=== PATIENT | male | born 1965 | race Caucasian/White ===

== ENCOUNTER 2025-03-19 16:43 | Emergency (ER) | payer BC, SELFPAY ==
--- NOTE | 2025-03-19 16:46 | ED.SKABFB ---
HPI - Skin/Abscess/Foreign Bdy General Chief complaint: Skin/Abscess/Foreign Body Stated complaint: Skin Problem/Tick Bite Time Seen by Provider: 03/19/25 16:55 Source: patient and RN notes reviewed Mode of arrival: ambulatory Limitations: no limitations History of Present Illness HPI narrative: 59-year-old male presents concern for rash on his back. Reports 2 weeks ago he had several tick bites, he removed the takes. Reports a week ago he noticed a rash. Reports that is itchy. He denies any pain. He denies flu-like symptoms or joint pain. MD complaint: insect bite/sting Related Data Allergies Allergy/AdvReac Type Severity Reaction Status Date / Time No Known Allergies Allergy Unverified 03/19/25 16:58 Review of Systems Review of Systems: CONSTITUTIONAL: Denies malaise, chills, sweats, or fever. EYES: Denies redness, or discharge. ENT: Denies rhinorrhea, congestion, swollen lips, swollen tongue CARDIOVASCULAR: Denies chest pain, palpitations, or edema. RESPIRATORY: Denies cough or dyspnea. GASTROINTESTINAL: Denies abdominal pain, nausea, vomiting SKIN: Reports rash on his back MUSCULOSKELETAL: Denies joint pain or myalgia. NEUROLOGIC: Denies headache. All systems reviewed & are unremarkable except as noted in HPI and below PMFSH Social History Social History Alcohol intake: current Comments At time of signature, agree with nursing past medical, surgical, social and family history. There is no relevant family history pertinent to the presenting complaint Exam Narrative: GENERAL: Well-appearing, well-nourished, and in no acute distress. HEAD: Normocephalic, atraumatic. EYES: PERRLA, conjunctivae clear, and EOMI. ENT: Mucous membranes moist. Oropharynx without edema, erythema or lesions. NECK: Supple. No lymphadenopathy CHEST: Clear to auscultation. No respiratory distress. HEART: Regular rate and rhythm. SKIN: Warm, dry. Irregular somewhat circular rash noted to the mid back approximately 20 cm in diameter NEURO: Alert and oriented x3. PSYCH: Normal mood and affect Course Course Emergency Course: Patient is aware of diagnosis, understands and agrees to treatment plan. Anticipatory guidance given. Patient agrees to follow-up as directed and is aware of reasons to seek care at the emergency department. Portions of this record may have been created with voice recognition software Level of Care: Express Care Visit Vital Signs Vital signs: Reviewed. MDM - Skin/Abscess/Foreign Bdy MDM Narrative Medical decision making narrative: Does not appear at this time to be erythema multiforme, bullous, SJS, TEN; no evidence at this time to suggest RMSF, endocarditis or Lyme disease; patient looks well, nontoxic and is tolerating oral intake; no neurologic signs or symptoms; no headache, photophobia or neck pain; afebrile; appropriate for initial outpatient treatment; discussed the importance of follow-up, patient agrees; question, viral exanthema, contact dermatitis, allergic dermatitis, eczema, urticaria, erythema migrans. No soft palate or uvula edema, no tongue, lip edema or other mucosal involvement, no respiratory compromise, no stridor, no wheezing, no wheezing, no history of syncope, no hypotension, no nausea, vomiting, or diarrhea. Instructed patient to go to nearest ER immediately for any worsening symptoms including but not limited to: fever, spreading rash, pain, sore throat, headache, dizziness, chest pain, trouble breathing, or any symptoms concerning to the patient. Critical Care Time Critical Care Time Critical Care Time: No Discharge Plan Discharge Clinical Impression: Tick bite, Rash Patient Disposition: Home Condition: Stable Instructions: Tick Bite (ED) Additional Instructions: 1) Please follow-up with your primary care doctor in the next 1-2 days. 2) If you have any worsening of symptoms or any other urgent concerns please go to the ER. 3) Please take medications as prescribed and continue taking your home medications as usual. 4) Please read and follow information included in discharge instructions. Having an established primary care provider is essential to your health. Please call [phone] for help finding a primary care provider in your area that accepts your insurance. Patient Language: Bengali Prescriptions: New doxycycline monohydrate 100 mg tablet 100 mg PO BID 7 Days Qty: 14 0RF Follow-up/Referrals: Leonardo,Jesús Wiseman MD [Non-Staff] - Glen Livingston MD [Physician] - Time of Disposition: 17:03
--- OUTSIDE RECORDS SUMMARY | 2025-03-19 16:46 | XMS_ITS | Clinical Summary ---
[facility] Organization [facility] Address [address] [place] [address] Care Team Providers Care Record Clerk Salesperson Name Role Phone Jesús Patterson MD Primary Care Provider [phone] Allergies No known active allergies Medications No known medications Active Problems Problem Noted Date Diagnosed Date Trigger finger, right little finger 11/29/2020 Cubital tunnel syndrome on left 11/29/2020 Adiposity 12/21/2013 Overview (02/03/2017): Obesity Restless legs syndrome 06/22/2013 Overview (02/03/2017): Restless leg syndrome Obstructive sleep apnea syndrome 06/22/2013 Overview (02/04/2017): Obstructive sleep apnea syndrome Parasomnia 06/22/2013 Overview (02/04/2017): Parasomnia Hypersomnia 06/22/2013 Overview (02/04/2017): Hypersomnia Hematochezia 05/19/2013 Overview (02/03/2017): BRBPR (bright red blood per rectum) Polyp of colon 05/19/2013 Overview (02/04/2017): Colonic polyp Social History Tobacco Use Types Packs/Day Years Used Date Smoking Tobacco: Never Smokeless Tobacco: Never Alcohol Use Standard Drinks/Week Comments Yes 0 (1 standard drink = 0.6 oz pur e alcohol) Sex and Gender Information Value Date Recorded Sex Assigned at Not on file 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 Gender Identity Not on file Sexual Orientation Not on file Obstetrics History Last Filed Vital Signs Vital Sign Reading Time Taken Comments Blood Pressure 146/103 11/29/2020 3:21 PM OSTEOLOGY TEACHER Pulse 65 11/29/2020 3:21 PM OSTEOLOGY TEACHER Temperature 36.5 C (97.7 F) 11/29/2020 3:21 PM OSTEOLOGY TEACHER Respiratory Rate - - Oxygen Saturation 98% 08/31/2013 3:25 PM CDT Inhaled Oxygen Concentration - - Weight 86.1 kg (189 lb 12.8 oz) 11/29/2020 3:21 PM OSTEOLOGY TEACHER Height 182.9 cm (6') 11/29/2020 3:21 PM OSTEOLOGY TEACHER Body Mass Index 25.74 11/29/2020 3:21 PM OSTEOLOGY TEACHER Plan of Treatment Not on file Insurance [facility] Care Teams Record Clerk Salesperson Relationship Specialty Start Date End Date Jesús Patterson MD PCP - General Family Medicine 04/04/18
--- OUTSIDE RECORDS SUMMARY | 2025-03-19 16:46 | XMS_ITS | Referral Summary ---
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 Gender Identity Not on file Sexual Orientation Not on file Last Filed Vital Signs Vital Sign Reading Time Taken Comments Blood Pressure 146/103 11/29/2020 3:21 PM STOCKROOM ASSOCIATE Pulse 65 11/29/2020 3:21 PM STOCKROOM ASSOCIATE Temperature 36.5 C (97.7 F) 11/29/2020 3:21 PM STOCKROOM ASSOCIATE Respiratory Rate - - Oxygen Saturation 98% 08/31/2013 3:25 PM CDT Inhaled Oxygen Concentration - - Weight 86.1 kg (189 lb 12.8 oz) 11/29/2020 3:21 PM STOCKROOM ASSOCIATE Height 182.9 cm (6') 11/29/2020 3:21 PM STOCKROOM ASSOCIATE Body Mass Index 25.74 11/29/2020 3:21 PM STOCKROOM ASSOCIATE Plan of Treatment Not on file Insurance [facility] Care Teams Music Teacher Relationship Specialty Start Date End Date Jesús Patterson MD PCP - General Family Medicine 04/04/18
--- OUTSIDE RECORDS SUMMARY | 2025-03-19 16:46 | XMS_ITS | CONTINUITY OF CARE DOCUMENT ---
Author Name soni kathrynalex Address Unknown Organization [facility] Address [address] [place] [address] Phone [phone] Care Team Providers Care Overedge Sewer Name Role Phone Manolo DON, Eddie Unavailable [phone] JERMAIN MASCORRO MD Unavailable [phone] INSURANCE PROVIDERS Payer name Policy type / Coverage type [place] red republican ID [facility] [employer] insurance company [id number]
--- OUTSIDE RECORDS SUMMARY | 2025-03-19 16:51 | XMS_ITS | CONTINUITY OF CARE DOCUMENT ---
Author Name soni kathrynalex Address Unknown Organization [facility] Address [address] [place] [address] Phone [phone] Care Team Providers Care Foot Cutter Name Role Phone Manolo DON, Eddie Unavailable JERMAIN MASCORRO MD Unavailable [phone] INSURANCE PROVIDERS Payer name Policy type / Coverage type [place] red alliance party ID [facility] [employer] Community insurance company [id number]
[2025-03-19 16:53] VITALS: BP 142/93; PULSE 71; RESP 20; TEMP 37.2; O2SAT 98
== END 2025-03-19 17:06 | disposition home or self-care (01) ==
PROVIDERS: Emergency Provider Nurse Practitioner
DX: T14.8XXA Other injury of unspecified body region, initial encounter (principal); W57.XXXA Bitten or stung by nonvenomous insect and other nonvenomous arthropods, initial encounter; R21 Rash and other nonspecific skin eruption
CPT/HCPCS: 99213; G0463